=== PATIENT | female | born 1980 | race Caucasian/White ===

== ENCOUNTER → 2020-05-25 | Outpatient (CLI) | payer BC ==
[2015-10-11 21:27] VITALS: BP 107/77
--- NOTE | 2020-05-25 16:00 | KCIC ---
Bilateral digital screening mammograms: Reason for examination: Routine baseline screening. Interpretation was made with the benefit of CAD. The skin and nipples show no abnormalities. No abnormal axillary lymph nodes are seen. The breast parenchyma shows scattered fibroglandular density. (Breast density: Category B.) There appears to be a small nodular density laterally on cc view of the left breast approximately 7.5 cm from the nipple and measuring approximately 9 mm in size. There is some nodularity measuring approximately 12 mm size posterior centrally in the left breast on the oblique view approximately 9 cm deep to the nipple. There is also a small nodular asymmetry laterally in the right breast on cc view probably in the 10:00 B position. Further evaluation with coned compression views in CC and lateral projections and bilateral breast ultrasound is recommended. There are no other dominant masses, suspicious calcifications or architectural distortions. Impression: Small nodular densities seen in the right and left breast. Recommend further evaluation with additional coned compression views and bilateral breast ultrasound. BI-RADS Category 0: Incomplete. Needs additional imaging evaluation. "Our facility is accredited by the [employer] Mammography [employer]." This patient's information has been entered into a reminder system for the patient to be notified with the results of her examination and a target date for the next mammogram. Electronically signed by: Della Pino MD (05/25/2020 3:57 PM) [id number]
== END ==
LOC: KCIC MAMMO 14:08
PROVIDERS: ATTEND Nurse Practitioner Family
DX: Z12.31 Encounter for screening mammogram for malignant neoplasm of breast (principal)
CPT/HCPCS: 77067

== ENCOUNTER → 2021-03-27 | Outpatient (CLI) | payer BC ==
[2015-10-11 21:27] VITALS: BP 107/77
--- NOTE | 2021-03-27 15:20 | KCIC ---
EXAM: Chest and right ribs, 3 views. HISTORY: Chest pain. COMPARISON: None. FINDINGS: A frontal view of the chest and 2 views of the right ribs are obtained. There is no infiltr ate, pleural effusion or pneumothorax. The heart is normal in size. There is mild scoliosis. IMPRESSION: No acute pulmonary or osseous finding. Electronically signed by: Nan Pereyra MD (03/27/2021 3:18 PM) [id number]
== END ==
LOC: KCIC 14:50
PROVIDERS: ATTEND Nurse Practitioner Family
DX: R07.81 Pleurodynia (principal); M41.84 Other forms of scoliosis, thoracic region
CPT/HCPCS: 71101